=== PATIENT | male | born 1950 | race Caucasian/White ===

== ENCOUNTER → 2023-09-10 10:22 | Outpatient (CLI) | payer MEDICARE, MEDICAID, SELFPAY ==
--- NOTE | 2023-09-10 10:27 | DI.NM.S_ITS ---
PROCEDURE: NM BONE SCAN WHOLE BODY RADIOPHARMACEUTICAL: 20.3 mCi Tc-99m MDP IV. INDICATIONS: Malignant neoplasm of prostate TECHNIQUE: Delayed whole-body scintigrams were obtained approximately 3-4 hours after intravenous injection of radiotracer. Anterior and posterior views were acquired from vertex to feet. Additional left and right oblique views of the pelvis were obtained. COMPARISON: None. FINDINGS: Increased activity in maxilla is probably related to dental disease. No lesions are identified in calvarium, sternum, clavicles, scapulae, ribs, bony pelvis, and visualized shafts of the long bones. There are foci of increased uptake in cervical, thoracic and lumbar spine most likely secondary to degenerative disc and facet disease; early metastasis to spine could be obscured by degenerative changes. There are foci of increased periarticular activity, most pronounced in right shoulder and bilateral sternoclavicular joints, ankles and feet, compatible with degenerative/arthritic changes. Bladder is distended, partially obscuring sacrum and pelvis. IMPRESSION: No definitive scintigraphic findings to suggest osseous metastasis. Dictated by: Lisbet Lei M.D. on 09/10/2023 at 16:26 Approved by: Lisbet Lei M.D. on 09/11/2023 at 8:48
== END ==
LOC: NUCM 10:24
PROVIDERS: Referring Provider Urology; Visit Provider Urology
DX: C61 Malignant neoplasm of prostate (principal)
CPT/HCPCS: 78306; A9503